=== PATIENT | male | born 1985 | race Two or more races ===

== ENCOUNTER → 2018-10-22 | Outpatient (CLI) | payer MEDICAID ==
--- NOTE | 2018-10-22 18:45 | RADIOLOGY REPORT (SQ) ---
EXAM DESCRIPTION: L SPINE WHOLE COMPLETED DATE/TIME: 10/22/2018 5:27 pm REASON FOR STUDY: M54.5 LOW BACK PAIN M54.5 LOW BACK PAIN COMPARISON: None. NUMBER OF VIEWS: Five views including obliques. TECHNIQUE: AP, lateral, oblique, and sacral radiographic images acquired of the lumbar spine. LIMITATIONS: None. FINDINGS: MINERALIZATION: Normal. SEGMENTATION: Normal. No transitional anatomy. ALIGNMENT: Normal. VERTEBRAE: Maintained height. No fracture or worrisome bone lesion. DISCS: Preserved height. No significant osteophytes or end plate irregularity. POSTERIOR ELEMENTS: Pedicles and facets are intact. No pars defect or posterior arch defects. HARDWARE: None in the spine. PARASPINAL SOFT TISSUES: Normal. PELVIS: Intact as visualized. No fractures or worrisome bone lesions. SI joints intact. OTHER: No other significant finding. IMPRESSION: NORMAL 5 VIEW LUMBAR SPINE. TECHNICAL DOCUMENTATION: JOB ID: [id number] [employer]- All Rights Reserved Reading location - IP/workstation name: [email or web address]
== END ==
LOC: RAD 16:53
PROVIDERS: ATTEND Family Medicine
DX: M54.5 Low back pain (principal)
CPT/HCPCS: 72110

== ENCOUNTER 2019-10-16 11:02 | Emergency (ER) | payer MEDICAID ==
--- NOTE | 2019-10-16 11:51 | ER Document Report ---
ED Medical Screen (RME) - General Chief Complaint: Chest Pain Stated Complaint: CHEST PAIN Time Seen by Provider: 10/16/19 11:48 Mode of Arrival: Ambulatory Information source: Patient Notes: Otherwise healthy 34-year-old male presenting with midsternal chest pressure that is been intermittent over the last couple of days. Patient reports associated nausea without vomiting or shortness of breath. He denies any recent injury. He does state that he lifts weights but states he does not feel this is a muscular pain as he has had muscular strains in his chest in the past and this does not feel the same. Exam: Lung sounds clear and equal bilaterally. No increase of the pain with palpation of the chest wall. I have greeted and performed a rapid initial assessment of this patient. A co mprehensive ED assessment and evaluation of the patient, analysis of test results and completion of the medical decision making process will be conducted by additional ED providers. I have specifically instructed the patient or family members with the patient to immediately return to any nursing staff should anything change in the patient's condition or with their chief complaint. This medical record was dictated with voice recognizing software. There may be grammatical, syntax errors that are unintended. TRAVEL OUTSIDE OF THE [place] IN LAST 30 DAYS: No Physical Exam - Vital signs Vitals: Temp Pulse Resp BP Pulse Ox 98.2 F 73 16 142/80 H 97 10/16/19 11:23 10/16/19 11:23 10/16/19 11:23 10/16/19 11:23 10/16/19 11:23 Course - Vital Signs Vital signs: Temp Pulse Resp BP Pulse Ox 98.2 F 73 16 142/80 H 97 10/16/19 11:23 10/16/19 11:23 10/16/19 11:23 10/16/19 11:23 10/16/19 11:23
--- NOTE | 2019-10-16 12:13 | EKG REPORT ---
SEVERITY:- NORMAL ECG - SINUS RHYTHM : Confirmed by: Torres Hall MD 16-Oct-2019 12:12:53
[2019-10-16 12:27] LABS: ABSOLUTE EOSINOPHILS # (AUTO) 0.2 10^3/uL (0.0-0.6); ABSOLUTE LYMPHOCYTES (AUTO) 1.6 10^3/uL (0.5-4.7); ABSOLUTE MONOCYTES (AUTO) 0.6 10^3/uL (0.1-1.4); ABSOLUTE NEUT (AUTO) 3.4 10^3/uL (1.7-8.2); BASOPHILS % (AUTO) 0.7 % (0-2); EOSINOPHILS % (AUTO) 3.2 % (0-6); HEMATOCRIT 40.1 % (37.9-51.0); HEMOGLOBIN 13.9 g/dL (13.5-17.0); LYMPHOCYTES % (AUTO) 27.9 % (13-45); MEAN CORPUSCULAR HEMOGLOBIN 27.3 pg (27.0-33.4); MEAN CORPUSCULAR HGB CONC 34.6 g/dL (32.0-36.0); MEAN CORPUSCULAR VOLUME 79 fl (80-97); MONOCYTES % (AUTO) 9.8 % (3-13); PLATELET COUNT 302 10^3/uL (150-450); RED BLOOD COUNT 5.07 10^6/uL (4.35-5.55); RED CELL DISTRIBUTION WIDTH 13.8 % (11.5-14.0); SEGMENTED NEUTROPHILS % (AUTO) 58.4 % (42-78); TOTAL CELLS COUNTED % (AUTO) 100 %; WHITE BLOOD COUNT 5.9 10^3/uL (4.0-10.5)
--- NOTE | 2019-10-16 12:44 | RADIOLOGY REPORT (SQ) ---
EXAM DESCRIPTION: CHEST 2 VIEWS COMPLETED DATE/TIME: 10/16/2019 12:23 pm REASON FOR STUDY: chest pain COMPARISON: None. EXAM PARAMETERS: NUMBER OF VIEWS: two views TECHNIQUE: Digital Frontal and Lateral radiographic views of the chest acquired. RADIATION DOSE: NA LIMITATIONS: none FINDINGS: LUNGS AND PLEURA: No opacities, masses or pneumothorax. No pleural effusion. MEDIASTINUM AND HILAR STRUCTURES: No masses or contour abnormalities. HEART AND VASCULAR STRUCTURES: Heart normal size. No evidence for failure. BONES: No acute findings. HARDWARE: None in the chest. OTHER: No other significant finding. IMPRESSION: NO ACUTE RADIOGRAPHIC FINDING IN THE CHEST. TECHNICAL DOCUMENTATION: JOB ID: [id number] [employer] All Rights Reserved Reading location - IP/workstation name: [email or web address]
[2019-10-16 12:50] LABS: ALBUMIN 4.5 g/dL (3.5-5.0); ALKALINE PHOSPHATASE 61 U/L (38-126); ANION GAP 10 (5-19); ASPARTATE AMINO TRANSFERASE 45 U/L (17-59); BILIRUBIN,DIRECT 0.2 mg/dL (0.0-0.4); BILIRUBIN,TOTAL 0.7 mg/dL (0.2-1.3); BLOOD UREA NITROGEN 13 mg/dL (7-20); CALCIUM 9.8 mg/dL (8.4-10.2); CARBON DIOXIDE 29 mmol/L (22-30); CHLORIDE 99 mmol/L (98-107); GLUCOSE 85 mg/dL (75-110); POTASSIUM 4.6 mmol/L (3.6-5.0); TOTAL PROTEIN 7.9 g/dL (6.3-8.2)
--- NOTE | 2019-10-16 14:16 | ER Document Report ---
ED General - General Chief Complaint: Chest Pain Stated Complaint: CHEST PAIN Time Seen by Provider: 10/16/19 11:48 Primary Care Provider: KOMAL STOVALL DO [Primary Care Provider] - Follow up as needed Mode of Arrival: Ambulatory TRAVEL OUTSIDE OF THE [place] IN LAST 30 DAYS: No - HPI Notes: 34M without history of HTN, DM, any history of smoking but who presents today ambulatory per private vehicle for a pain that is gripping and nonradiating right in the center of his chest. He does not note that is necessarily exertional. He has had it for a few days now and so on and off last he says for an hour at a time he does not think that it is related to eating. At first he says he has had some heartburn before which is usually in the same spot but f eels different than today which is more intense. He denies any blood in his stool any melena. He denies any shortness of breath any paroxysmal nocturnal events any orthopnea. No leg swelling or other swelling. He says that no positions seem to actually worsen or improve his symptoms. Denies vomiting denies change in appetite. Denies fever chills sweats. On medication review he says he is taking Prozac which is unchanged and meloxicam 15 mg a day for the past "8 months". Denies cough or URI symptoms. Says he does not think this is musculoskeletal because he knows when he works out in his chest the type of pain he gets from that. Says + colonoscopy as teenager for some blood in stools that was (-). He had not had continued issues with bowels or bloody stools and has no diagnosis of any GI disease. Denies any alcohol history Past Medical History - General Information source: Patient - Social History Smoking Status: Never Smoker Chew tobacco use (# tins/day): No Frequency of alcohol use: Occasional Drug Abuse: None Family History: Reviewed & Not Pertinent - When asked if he has any family history of cardiac disease he says that his mom has a history of asthma only he does not know his father or much about any of his other extended family. Patient has suicidal ideation: No Patient has homicidal ideation: No - Past Medical History Cardiac Medical History: Reports: Other - See HPI for all past medical history he reports. GI Medical History: Reports: Hx Colonoscopy. Denies: Hx Endoscopy Review of Systems - Review of Systems Constitutional: No symptoms reported EENT: No symptoms reported Cardiovascular: Chest pain - He initially describes as chest pain. denies: Orthopnea, Dyspnea, Syncope, Dizziness, Edema, Paroxysmal Nocturnal Dysp Respiratory: No symptoms reported Gastrointestinal: denies: Abdomen distended, Diarrhea, Nausea, Vomiting, Constipation, Blood streaked bowels, Poor appetite, Poor fluid intake, Blood in vomit, Black stools, Rectal bleeding Genitourinary: No symptoms reported Male Genitourinary: No symptoms reported Musculoskeletal: No symptoms reported Skin: No symptoms reported Hematologic/Lymphatic: No symptoms reported Neurological/Psychological: No symptoms reported Physical Exam - Vital signs Vitals: Temp Pulse Resp BP Pulse Ox 98.2 F 73 16 142/80 H 97 10/16/19 11:02 10/16/19 11:02 10/16/19 11:02 10/16/19 11:02 10/16/19 11:02 Interpretation: Normal - General General appearance: Appears well, Alert In distress: None - HEENT Head: Normocephalic, Atraumatic Eyes: Normal. No: Pale conjunctiva, Periorbital ecchymosis, Periorbital edema, Scleral icterus Conjunctiva: No: Injected Eyelashes: Normal Pupils: PERRL Mouth/Lips: Normal. No: Lesions Mucous membranes: Moist Pharynx: Normal Neck: Normal - Respiratory Respiratory status: No respiratory distress Chest status: Nontender Breath sounds: Normal Chest palpation: Normal - Cardiovascular Rhythm: Regular Heart sounds: Normal auscultation Murmur: No Friction rub: No Gallop: None auscultated Pulses: Normal: Radial Normal capillary refill: Yes - Symmetric - Abdominal Inspection: Normal Distension: No distension Tenderness: Tender - Mild tenderness mostly epigastric negative rebound or guarding or any peritoneal signs he says palpation of the epigastric area caudal to sternum reproduces the pain is more cephalad under the sternum that he had been reporting. Palpation of the chest wall does not reproduce this. Full range of motion of shoulders and upper extremities does not reproduce any symptoms. Organomegaly: No organomegaly - Back Back: Normal, Nontender. No: Deformity/step-off, CVA tenderness, Vertebra tenderness, Scoliosis - Extremities General upper extremity: Normal inspection, Nontender, Normal color, Normal ROM, Normal temperature General lower extremity: Normal inspection, Nontender, Normal color, Normal ROM, Normal temperature, Normal weight bearing. No: Jose Luis's sign Shoulder: Normal - Neurological Neuro grossly intact: Yes Cognition: Normal Orientation: AAOx4 Vj Coma Scale Eye Opening: Spontaneous Vj Coma Scale Verbal: Oriented [place] Coma Scale Motor: Obeys Commands Vj Coma Scale Total: 15 Speech: Normal Motor strength normal: LUE, RUE, LLE, RLE Sensory: Normal - Psychological Associated symptoms: Normal affect, Normal mood - Skin Skin Temperature: Warm Skin Moisture: Dry Skin Color: Normal Course - Re-evaluation Re-evalutation: 10/16/19 14:16 ECG reviewed no prior for comparison normal sinus rhythm rate 70. All intervals within normal limit no evidence of any aberrancy. Voltage within normal limits axis within normal limits no evidence of hypertrophy. Had a initial troponin ordered this was negative he is a heart score of 0. I reassured patient on his examination that this seemed localized really more in the epigastric region and that his story made me think more of a inflammation of the upper GI tract and reflux. We discussed that the meloxicam can put him at increased risk of inflammation and even ulceration and GI bleeds. We discussed watching for any of signs of bleeding but that I recommend a trial of initiating omeprazole once a day. And then we discussed lifestyle modifications for reflux. I did discuss what warning signs o for which I would like him to return which would include shortness of breath exertional symptoms any passing out near passing out or vomiting or bloody stools or vomit or severe pain that persisted we also discussed not immediately withdrawing the PPI. He will follow-up with his primary care doctor regarding the response to starting omeprazole. And return if he has any of the above. - Vital Signs Vital signs: Temp Pulse Resp BP Pulse Ox 97.9 F 73 14 132/78 H 98 10/16/19 18:02 10/16/19 11:23 10/16/19 17:01 10/16/19 18:02 10/16/19 18:02 - Laboratory Result Diagrams: 10/16/19 12:15 10/16/19 12:15 Laboratory results interpreted by me: 10/16/19 12:15 MCV 79 L - Diagnostic Test Radiology reviewed: Image reviewed, Reports reviewed - I reviewed two-view chest x-ray no prior chest x-rays in our system. No pneumothoraces or bony findings to suggest symptoms. No abbie consolidations to suggest pneumonia all c ardiomediastinal and diaphragmatic borders are within normal limits. Discharge - Discharge Clinical Impression: GERD (gastroesophageal reflux disease), Epigastric pain Condition: Good Disposition: HOME, SELF-CARE Additional Instructions: I think this is reflux symptoms and I hope that after some days on a proton pump inhibitor, your symptoms get better. please avoid any laying down within the hour after eating, and avoid big meals. Avoid alcohol use in large amounts. Avoid carbonated drinks and large amounts. Otherwise do not stop the proton pump inhibitor medicine abruptly as you can have severe return of symptoms. Watch for any symptoms on exertion including chest pain weakness shortness of breath nausea vomiting but otherwise I think you will start to get better if you follow the above recommendations. Please follow-up with your primary care doctor about management of the proton pump inhibitor otherwise. Please stop taking the meloxicam. Also make sure you avoid any other NSAID medications for now, these include ibuprofen Motrin aspirin and will always say on the back of the bottle, NSAID. Prescriptions: Omeprazole 20 mg PO DAILY 30 Days #30 capsule. Referrals: KOMAL STOVALL DO [Primary Care Provider] - Follow up as needed
[2019-10-16 18:05] VITALS: BP 132/78
== END 2019-10-16 19:24 | disposition home or self-care (01) ==
LOC: ER 11:02
DX: K21.9 Gastro-esophageal reflux disease without esophagitis (principal); R10.13 Epigastric pain; R07.9 Chest pain, unspecified; I10 Essential (primary) hypertension; E11.9 Type 2 diabetes mellitus without complications
CPT/HCPCS: 36415; 71046; 80053; 84484; 85025; 93005; 93010; 99285

== ENCOUNTER 2020-07-28 14:24 | Emergency (ER) | payer MEDICAID ==
[2020-07-28 14:30] VITALS: BP 135/89
--- NOTE | 2020-07-28 16:14 | ER Document Report ---
Doctor's Note Notes: 07/28/20 16:12 pt complains of right shoulder pain. no injury. exam unremarkable except right shoulder tenderness at AC jnt on right
--- NOTE | 2020-07-28 16:42 | RADIOLOGY REPORT (SQ) ---
EXAM DESCRIPTION: SHOULDER RIGHT 2 OR MORE VIEWS IMAGES COMPLETED DATE/TIME: 07/28/2020 4:33 pm REASON FOR STUDY: shoulder pain COMPARISON: None. NUMBER OF VIEWS: Three views. TECHNIQUE: Internal rotation, external rotation, and Y view images acquired of the right shoulder. LIMITATIONS: None. FINDINGS: MINERALIZATION: Normal. BONES: No acute fracture. No worrisome bone lesions. No significant osteophytes. GLENOHUMERAL JOINT: No significant findings. ACROMIOCLAVICULAR JOINT: No large osteophytes. SOFT TISSUES: No calcifications. VISUALIZED RIBS, SPINE, AND LUNG: No other significant finding. OTHER: No other significant finding. IMPRESSION: NEGATIVE STUDY OF THE RIGHT SHOULDER. NO EXPLANATION FOR PAIN. TECHNICAL DOCUMENTATION: JOB ID: [id number] 2010 [employer]- All Rights Reserved Reading location - IP/workstation name: [email or web address]
--- NOTE | 2020-07-28 17:02 | ER Document Report ---
ED General - General Chief Complaint: Shoulder Injury Stated Complaint: SHOULDER PAIN Time Seen by Provider: 07/28/20 16:13 Primary Care Provider: KOMAL STOVALL DO [Primary Care Provider] - Follow up as needed Mode of Arrival: Ambulatory Information source: Patient TRAVEL OUTSIDE OF THE [place] IN LAST 30 DAYS: No - HPI Onset: Last week Onset/Duration: Gradual Quality of pain: Dull Severity: Moderate Associated symptoms: None Exacerbated by: Movement Relieved by: Remaining still Past Medical History - General Information source: Patient - Social History Smoking Status: Never Smoker Frequency of alcohol use: None Drug Abuse: None Family History: Reviewed & Not Pertinent - When asked if he has any family history of cardiac disease he says that his mom has a history of asthma only he does not know his father or much about any of his other extended family. GI Medical History: Reports: Hx Colonoscopy. Denies: Hx Endoscopy Review of Systems - Review of Systems Constitutional: denies: Chills, Fever Cardiovascular: denies: Chest pain, Palpitations Respiratory: denies: Cough, Short of breath -: Yes All other systems reviewed and negative Physical Exam - Vital signs Vitals: Temp Pulse Resp BP Pulse Ox 98.7 F 89 18 135/89 H 94 07/28/20 14:28 07/28/20 14:28 07/28/20 14:28 07/28/20 14:28 07/28/20 14:28 Interpretation: Normal - General General appearance: Appears well, Alert - HEENT Head: Normocephalic, Atraumatic Eyes: Normal Pupils: PERRL - Respiratory Respiratory status: No respiratory distress Chest status: Nontender Breath sounds: Normal Chest palpation: Normal - Cardiovascular Rhythm: Regular Heart sounds: Normal auscultation Murmur: No - Abdominal Inspection: Normal Distension: No distension Bowel sounds: Normal Tenderness: Nontender Organomegaly: No organomegaly - Back Back: Normal, Nontender - Extremities General upper extremity: Normal inspection, Tender - mild tenderness over right ac jnt, Normal color, Normal ROM, Normal temperature General lower extremity: Normal inspection, Nontender, Normal color, Normal ROM, Normal temperature, Normal weight bearing. No: Jose Luis's sign - Neurological Neuro grossly intact: Yes Cognition: Normal Orientation: AAOx4 Vj Coma Scale Eye Opening: Spontaneous [place] Coma Scale Verbal: Oriented [place] Coma Scale Motor: Obeys Commands Vj Coma Scale Total: 15 Speech: Normal Motor strength normal: LUE, RUE, LLE, RLE Sensory: Normal - Psychological Associated symptoms: Normal affect, Normal mood - Skin Skin Temperature: Warm Skin Moisture: Dry Skin Color: Normal Course - Vital Signs Vital signs: Temp Pulse Resp BP Pulse Ox 98.7 F 89 18 135/89 H 94 07/28/20 14:28 07/28/20 14:28 07/28/20 14:07/28/20 14:07/28/20 14:28 - Diagnostic Test Radiology reviewed: Image reviewed, Reports reviewed Procedures - Immobilization Right Shoulder Time completed: 17:01 Pre-Proc Neuro Vasc Exam: Normal Immobilizer type: Sling Performed by: RN Post-Proc Neuro Vasc Exam: Normal Alignment checked and good: Yes Discharge - Discharge Clinical Impression: Arthralgia of right acromioclavicular joint Condition: Stable Disposition: HOME, SELF-CARE Instructions: Sling as Treatment ([facility]) Referrals: KOMAL STOVALL DO [Primary Care Provider] - Follow up in 1 week
== END 2020-07-28 17:12 | disposition home or self-care (01) ==
LOC: ER 14:24
DX: M25.511 Pain in right shoulder (principal)
CPT/HCPCS: 99283